=== PATIENT | male | born 1945 | race Two or more races ===

== ENCOUNTER 2020-01-15 10:52 | Emergency (ER) | payer MEDICARE, OTHER ==
[~2020-01-15] VITALS: Ht 180.3 cm; Wt 73.9 kg
[~2020-01-15 10:52] MED LIST: ATOR10TA
[2020-01-15 10:55] VITALS: BP 163/98
[2020-01-15] MEDS ORDERED: LIDOCAINE 1%-EPI 1:100,000 20 ML VIAL ONE (11:11)
[2020-01-15] MEDS ORDERED: TDAP [DIPH/PERTUSSIS/TET] 0.5 ML VIAL IM ONE ×2 (11:16→11:30)
[2020-01-15] MEDS ORDERED: LIDOCAINE 1%-EPI 1:100,000 20 ML VIAL TP ONE (11:30)
--- NOTE | 2020-01-15 11:55 | NUR ---
GWEN APPLIED BY .
--- NOTE | 2020-01-15 12:10 | NUR ---
WOUND CLEANING AND DRESSING DONE.
--- NOTE | 2020-01-15 12:11 | NUR ---
Patient discharged to home in stable condition. Written and verbal after care instructions given. Patient verbalizes understanding of instruction.
== END 2020-01-15 12:12 | disposition home or self-care (01) ==
LOC: ER 11:22
DX: S51.812A Laceration without foreign body of left forearm, initial encounter (principal); E78.00 Pure hypercholesterolemia, unspecified; Z90.5 Acquired absence of kidney; Z85.528 Personal history of other malignant neoplasm of kidney; Z79.899 Other long term (current) drug therapy; W26.8XXA Contact with other sharp object(s), not elsewhere classified, initial encounter; Y93.89 Activity, other specified; Y92.89 Other specified places as the place of occurrence of the external cause; Y99.8 Other external cause status
CPT/HCPCS: 12004; 90471; 90715; 99283; A6403; J3490

== ENCOUNTER 2020-01-22 10:06 | Emergency (ER) | payer MEDICARE ==
[~2020-01-22] VITALS: Ht 180.3 cm; Wt 77.1 kg
[2020-01-22 10:09] VITALS: BP 137/89
--- NOTE | 2020-01-22 10:11 | NUR ---
PT BIB SELF NOTED WITH GWEN ON L FOREARM WITH 7 GWEN. NO BLEEDING, WOUND IS CLEAN AND DRY. NO S/C OF INFECTION NOTED. NO REDNESS, NO TENDERNESS, NO SWELLING, AWAITING MD MOORE.
--- NOTE | 2020-01-22 10:34 | NUR ---
Patient discharged to home in stable condition. Written and verbal after care instructions given. Patient verbalizes understanding of instruction.
== END 2020-01-22 10:39 | disposition home or self-care (01) ==
LOC: ER 10:09
DX: S51.812D Laceration without foreign body of left forearm, subsequent encounter (principal); E78.00 Pure hypercholesterolemia, unspecified; Z90.5 Acquired absence of kidney; Z79.899 Other long term (current) drug therapy; X58.XXXD Exposure to other specified factors, subsequent encounter